=== PATIENT | male | born 1985 | race Two or more races ===

== ENCOUNTER → 2021-12-17 08:57 | Outpatient (BNVA) | payer OTHER, SELFPAY | PROVIDERS: PCP Psychiatry & Neurology Neurology; Visit Provider Psychiatry & Neurology Neurology ==

== ENCOUNTER → 2022-02-18 08:40 | Outpatient (BNVA) | payer OTHER, SELFPAY | PROVIDERS: PCP Internal Medicine; Visit Provider Nurse Practitioner Family | DX: G47.33 Obstructive sleep apnea (adult) (pediatric) (principal); R41.840 Attention and concentration deficit; Z79.899 Other long term (current) drug therapy | CPT/HCPCS: 99212 ==

== ENCOUNTER → 2022-04-17 08:03 | Outpatient (BNVA) | payer OTHER, SELFPAY | PROVIDERS: PCP Internal Medicine; Visit Provider Nurse Practitioner Family | DX: R41.840 Attention and concentration deficit (principal) ==

== ENCOUNTER → 2023-03-10 08:57 | Outpatient (BNVA) | payer OTHER, SELFPAY | PROVIDERS: PCP Internal Medicine; Visit Provider Nurse Practitioner Family | DX: Z13.89 Encounter for screening for other disorder (principal) ==

== ENCOUNTER → 2023-08-21 19:30 | Outpatient (REF) | payer OTHER, SELFPAY | LOC: HO.SL 19:30 | PROVIDERS: Visit Provider Nurse Practitioner Family | DX: G47.19 Other hypersomnia (principal); G47.30 Sleep apnea, unspecified; G47.10 Hypersomnia, unspecified | CPT/HCPCS: 95805; 95810 ==

== ENCOUNTER → 2023-08-21 21:59 | Outpatient (BNV) | payer OTHER, SELFPAY | PROVIDERS: Visit Provider Psychiatry & Neurology Neurology | DX: G47.33 Obstructive sleep apnea (adult) (pediatric) (principal) | CPT/HCPCS: 95810 ==

== ENCOUNTER 2023-08-22 08:36 | Outpatient (REF) | payer OTHER, SELFPAY ==
[2023-08-22 08:48] LABS: Amphetamine Screen Urine Not Detected (Not Detect); Barbiturates, Urine Not Detected (Not Detect); Benzodiazepines Screen Urine Not Detected (Not Detect); Cannabinoid Screen Urine Not Detected (Not Detect); Cocaine Screen Urine Not Detected (Not Detect); Fentanyl, urine Not Detected (Not Detect); Opiate Screen Urine Not Detected (Not Detect); Phencyclidine Screen Urine Not Detected (Not Detect)
== END 2023-08-22 08:37 | disposition home or self-care (01) ==
LOC: HO.LNP 08:36
PROVIDERS: Visit Provider Nurse Practitioner Family
DX: R41.840 Attention and concentration deficit (principal); G47.10 Hypersomnia, unspecified; R41.0 Disorientation, unspecified
CPT/HCPCS: 80307

== ENCOUNTER 2023-09-12 08:55 | Outpatient (AMB) | payer OTHER, SELFPAY ==
--- NOTE | 2023-09-12 08:59 | A.OFFVIS_ITS ---
Intake Vital Signs 09/12/23 09:01 Height 5 ft 7 in Weight 216 lb 6 oz BMI 33.9 BP 112/80 Blood Pressure Location Rt brachial Position Sitting Pulse 93 Pulse Source Pulse Oximeter Pulse Oximetry (%) 98 Oxygen Delivery Method Room Air Intake Visit Reasons: 4m follow up dayan - confirmed Intake Note: F/U sleep study Car Shifter Required: No Allergies No Known Allergies Allergy (Verified 09/12/23 08:59) HPI HPI Comments History of Present Illness Details 38 y/o male patient presents for follow up of DAYAN and hypersomnia. The MSLT result shows pt's sleep latency was 9:18 minutes consistent with hypersomnia. There was no SOREM. He is on modafinil 200 mg qAM. The CPAP compliance and therapy response (08/13/23-09/11/23) reviewed. He is on APAP [id number]. The usage days 90% and the average usage hours 5 hrs and 40 min. The max pressure was 11.3 and the residual AHI was 1.6/hr. He still can fall asleep without modafinil He is a light sleeper, and can wakes up easily during the night. He goes to gym three times a week. Pt recently diagnosed with prediabetes. PFSH Surgical History H/O hernia repair Hx of hand surgery [place] teeth removed Family History Father Diabetes Depression Dementia Mother HTN (hypertension) Acute arthritis Hypoactive thyroid Social History (Updated 09/12/23 @ 09:01 by Lexi Shelton CMA) Alcohol intake: current Alcohol intake frequency: holidays/special occasions only Patient Tobacco Use Status: Never used Tobacco Review of Systems Const All systems reviewed & are unremarkable except as noted in HPI and below ENT Reports Normal hearing present Neuro Reports Normal hearing present Physical Exam Vital Signs: Last Vital Signs Pulse 93 09/12/23 09:01 BP 112/80 09/12/23 09:01 Pulse Ox 98 09/12/23 09:01 Oxygen Delivery Method Room Air 09/12/23 09:01 BMI result Body Mass Index 33.9 Const General: cooperative Orientation/consciousness: patient oriented x3 Neck Neck: Yes full ROM and Yes supple Resp Effort & Inspection: normal respiratory effort and able to speak in complete sentences Neuro General: patient oriented x3 and gait normal Cranial nerves: Yes Bilaterally intact EOM present, Yes Normal facial strength present, Yes Normal hearing present, Yes Ability to bilaterally rotate head present and Yes Ability to bilaterally elevate shoulders present Cognition (Neuro): normal cognition Gait exam (Neuro): Normal gait present Psych Appearance: grossly normal Mental Status: mental status grossly normal Speech and movement: Normal speech and movement present Affect: normal affect Attitude: cooperative Assessment & Plan Assessment & Plan (1) Difficulty concentrating: Code(s): R41.840 - Attention and concentration deficit (2) Excessive daytime sleepiness: Code(s): G47.19 - Other hypersomnia (3) Sleep apnea in adult: Code(s): G47.30 - Sleep apnea, unspecified (4) Hypersomnia, unspecified: Comment: [place] sleepiness scale 17 Code(s): G47.10 - Hypersomnia, unspecified Plan Advised patient to continue to use APAP [id number]. Stressed compliance, and advised patient to clean mask and tubing regularly. Continue to take modafinil 200 qAM. Resent neuropsychology referral to Dr. Daly.? Medications: New magnesium oxide 400 mg PO DAILY 30 tabs 6RF 30 days Coding Level of Care Code Est Pt Level 4 (77734) Diagnoses Difficulty concentrating R41.840 Excessive daytime sleepiness G47.19 Sleep apnea in adult G47.30 Hypersomnia, unspecified G47.10
[2023-09-12 09:01] VITALS: BP 112/80; PULSE 93; O2SAT 98; BMI 33.9
== END 2023-09-12 09:29 | disposition home or self-care (01) ==
PROVIDERS: Visit Provider Nurse Practitioner Family
DX: R41.840 Attention and concentration deficit (principal); G47.19 Other hypersomnia; G47.30 Sleep apnea, unspecified; G47.10 Hypersomnia, unspecified
CPT/HCPCS: 99214

== ENCOUNTER → 2023-09-12 08:55 | Outpatient (BNVA) | payer OTHER, SELFPAY | PROVIDERS: Visit Provider Nurse Practitioner Family ==

== ENCOUNTER 2024-03-23 09:04 | Outpatient (AMB) | payer OTHER, SELFPAY ==
--- NOTE | 2024-03-23 09:03 | A.OFFVIS_ITS ---
Vital Signs 03/23/24 09:04 Height 5 ft 7 in Weight 215 lb BMI 33.7 Pulse 89 Pulse Source Pulse Oximeter Pulse Oximetry (%) 99 Oxygen Delivery Method Room Air Intake Visit Reasons: follow up SARA - Confirmed Intake Note: Patient presents for follow up SARA. patient continue to to have issues with hypersomina Allergies No Known Allergies Allergy (Verified 03/23/24 09:08) HPI Comments Details: 38 y/o male patient presents for follow up of SARA and hypersomnia. The CPAP compliance and therapy response (12/17/23-03/15/24) reviewed. He is on APAP [id number]. The usage days 99% and the average usage hours 6 hrs and 20 min. The max pressure was 11.9 and the residual AHI was 1.8/hr. Pt reports that he still sleepy with modafinil and difficulty concentrating at work. He is on modafinil 200 mg qAM. Referred patient to neuropsychology evaluation but not done yet. He was told that he is in waiting list. He is a light sleeper, and can wakes up easily during the night. He goes to gym two times a week. Pt recently diagnosed with prediabetes, and trying to lose wt. The MSLT result shows pt's sleep latency was 9:18 minutes consistent with hype rsomnia. There was no SOREM. PFSH Surgical History [place] teeth removed Hx of hand surgery H/O hernia repair Family History Father Diabetes Depression Dementia Mother HTN (hypertension) Acute arthritis Hypoactive thyroid Social History Alcohol intake: current Alcohol intake frequency: holidays/special occasions only Patient Tobacco Use Status: Never used Tobacco Review of Systems Const All systems reviewed & are unremarkable except as noted in HPI and below ENT Reports Normal hearing present Neuro Reports Normal hearing present Physical Exam Vital Signs: Last Vital Signs Pulse 89 03/23/24 09:04 Pulse Ox 99 03/23/24 09:04 Oxygen Delivery Method Room Air 03/23/24 09:04 BMI result Body Mass Index 33.7 Const General: cooperative Orientation/consciousness: patient oriented x3 Neck Neck: Yes full ROM and Yes supple Resp Effort & Inspection: normal respiratory effort and able to speak in complete sentences Neuro General: patient oriented x3 and gait normal Cranial nerves: Yes Bilaterally intact EOM present, Yes Normal facial strength present, Yes Normal hearing present, Yes Ability to bilaterally rotate head present and Yes Ability to bilaterally elevate shoulders present Cognition (Neuro): normal cognition Gait exam (Neuro): Normal gait present Psych Appearance: grossly normal Mental Status: mental status grossly normal Speech and movement: Normal speech and movement present Affect: normal affect Attitude: cooperative Assessment & Plan Assessment & Plan (1) Difficulty concentrating: Code(s): R41.840 - Attention and concentration deficit Category: Medical (2) Excessive daytime sleepiness: Code(s): G47.19 - Other hypersomnia Category: Medical (3) Sleep apnea in adult: Code(s): G47.30 - Sleep apnea, unspecified Category: Medical (4) Hypersomnia, unspecified: Comment: [place] sleepiness scale 17 Code(s): G47.10 - Hypersomnia, unspecified Category: Medical Plan Advised patient to continue to use APAP [id number]. Stressed compliance, and advised patient to clean mask and tubing regularly. Continue to take modafinil 200 qAM. Advised patient to try adderall 5 mg 1-2 hr after modafinil. Neuropsychology referral to Dr. Daly.? Medications: New dextroamphetamine-amphetamine 5 mg (Adderall) Partial Fill upon patient request. 5 mg PO DAILY 30 days PRN 30 tabs 0RF hypersomnia Refilled magnesium oxide 400 mg PO DAILY 30 days 30 tabs 6RF
[2024-03-23 09:04] VITALS: PULSE 89; O2SAT 99; BMI 33.7
== END 2024-03-23 09:37 | disposition home or self-care (01) ==
PROVIDERS: PCP Internal Medicine; Visit Provider Nurse Practitioner Family
DX: R41.840 Attention and concentration deficit (principal); G47.19 Other hypersomnia; G47.30 Sleep apnea, unspecified; G47.10 Hypersomnia, unspecified
CPT/HCPCS: 99214

== ENCOUNTER → 2024-03-23 09:05 | Outpatient (BNVA) | payer OTHER, SELFPAY | PROVIDERS: PCP Internal Medicine; Visit Provider Nurse Practitioner Family ==

== ENCOUNTER 2024-09-06 08:56 | Outpatient (AMB) | payer OTHER, SELFPAY ==
--- NOTE | 2024-09-06 08:59 | MHC.OFFVIS ---
Vital Signs 09/06/24 09:09 Height 5 ft 7 in Weight 213 lb BMI 33.4 Intake Visit Reasons: 6 mnts f/u appt Intake Note: Patient presents for 6 months follow up. Allergies No Known Allergies Allergy (Verified 09/06/24 09:09) Medication List - Last Reconciled 09/06/24 by Joy Mendez, GAS ENGINE PERFORMANCE ENGINEER dextroamphetamine-amphetamine 5 mg (Adderall) 5 mg PO DAILY PRN 30 days fluticasone propionate 50 mcg/actuation 1 spray intranasal DAILY PRN levothyroxine 125 mcg PO DAILY loratadine 10 mg PO DAILY PRN magnesium oxide 400 mg PO DAILY 30 days modafinil 200 mg PO QAM 30 days multivitamin (Daily Multi-Vitamin tablet) 1 tab PO DAILY pantoprazole 40 mg PO DAILY HPI Comments Details: 39-yr-old male presents for follow-up visit of sleep apnea and hypersomnia. Pt denies any significant interval medical history changes. Pt continue sto be compliant w/ CPAP, however he continues to have significant daytime sleepiness. He is compliant w/ Modafinil, which helps, but he still has sleepiness and difficulty focusing, staying motivated. Pt reports that he tried adding Adderall 5mg qam at ~8:30am, which helped cognition some, but then he could not fall asleep until midnight. He notes, in the past, he always slept 8 hrs. Now, he falls asleep as soon as he puts his CPAP on. His bedtime varies- between 10-11pm during work days and on the weekend more prone to fall asleep much earlier, even between 7-8pm and taking weekend naps. Then he typically wakes up after 7.5 hrs. His work schedule is 8:30am-5pm. 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 He is finding himself needing to take more notes to remind himself or to sray on task. He has a strong family h/o Alzheimer's, thus his sleep issues worry him.- father had s/s at age 65. His paternal aunts had AD in their 60s-70s, his paternal grandparents had AD s/s in their 70s-80s. Sleep Medicine Services Compliance Report Compliance Payor, 08/07/2024 - 09/05/2024 Usage days 28/30 days (93%) >= 4 hours 22 days (73%) < 4 hours 6 days (20%) Usage hours 163 hours 52 minutes Average usage (total days) 5 hours 28 minutes Average usage (days used) 5 hours 51 minutes Median usage (days used) 6 hours 25 minutes Total used hours (value since last reset - 09/05/2024) 6,896 hours AirSense 10 AutoSet Serial number [id number] Mode AutoSet Min Pressure 6 cmH2O Max Pressure 16 cmH2O EPR Fulltime EPR level 3 Response Standard Therapy Pressure - cmH2O Median: 7.8 95th percentile: 10.1 Maximum: 11.3 Leaks - L/min Median: 6.5 95th percentile: 15.0 Maximum: 27.9 Events per hour AI: 1.1 HI: 0.4 AHI: 1.5 Apnea Index Central: 0.6 Obstructive: 0.4 Unknown: 0.0 RERA Index 0.1 PFSH Surgical History [place] teeth removed Hx of hand surgery H/O hernia repair Family History Father Diabetes Depression Dementia Mother HTN (hypertension) Acute arthritis Hypoactive thyroid Social History Alcohol intake: current Alcohol intake frequency: holidays/special occasions only Patient Tobacco Use Status: Never used Tobacco Physical Exam Vital Signs: BMI result Body Mass Index 33.4 Const General: no acute distress and tired appearing Orientation/consciousness: patient oriented x3 HEENT Other: Mallampati stage Resp Effort & Inspection: normal respiratory effort and able to speak in complete sentences Neuro General: patient oriented x3 Psych Mental Status: mental status grossly normal Speech and movement: Clear speech present Attitude: cooperative Assessment & Plan Assessment & Plan (1) Hypersomnia, unspecified: Comment: MSLT- positive for hypersomnia but no SOREMs Code(s): G47.10 - Hypersomnia, unspecified Category: Medical (2) Sleep apnea in adult: Code(s): G47.30 - Sleep apnea, unspecified Category: Medical Plan For SARA: Continue APAP 6-16 cmH2O nightly > 4 hours, as pt continues to have good clinical effect from use. Clean CPAP machine and supplies routinely. Change CPAP supplies routinely. For hypersomnia in setting of weel controlled SARA: Pt stopped Adderall 5mg qam- as this caused insomnia. Stop Modafinil 200mg qam. Trial Armodafinil 250mg qam- in hopes this is more effective for daytime alertness and cognitive focus. Pt advised to maintain a consistent bedtime routine. May take brief early day scheduled naps. Sleep hygiene education resources shared w/ pt. For family h/o AD: Pt advised to discuss having his father assessed for gentic etiologies of AD. Pt to follow-up in 6 months or sooner prn. Medications: New armodafinil 200 mg PO QAM 30 days 30 tabs 1RF Discontinued dextroamphetamine-amphetamine 5 mg (Adderall) Partial Fill upon patient request. Discontinued Reason: Doctor's Order 5 mg PO DAILY 30 days PRN 30 tabs 0RF hypersomnia modafinil Discontinued Reason: Doctor's Order 200 mg PO QAM 30 days 30 tabs 3RF Coding Level of Care Code Est Pt Level 4 (07571) Diagnoses Hypersomnia, unspecified G47.10 Sleep apnea in adult G47.30
[2024-09-06 09:09] VITALS: BMI 33.4
== END 2024-09-06 10:01 | disposition home or self-care (01) ==
PROVIDERS: PCP Internal Medicine; Visit Provider Nurse Practitioner Family
DX: G47.10 Hypersomnia, unspecified (principal); G47.30 Sleep apnea, unspecified
CPT/HCPCS: 99214

== ENCOUNTER → 2024-09-06 08:56 | Outpatient (BNVA) | payer OTHER, SELFPAY | PROVIDERS: PCP Internal Medicine; Visit Provider Nurse Practitioner Family ==

== ENCOUNTER 2025-03-16 14:56 | Outpatient (AMB) | payer OTHER, SELFPAY ==
--- NOTE | 2025-03-16 14:58 | A.OFFVIS_ITS ---
Vital Signs 03/16/25 14:59 Height 5 ft 7 in Weight 211 lb 4 oz BMI 33.1 BP 124/74 Blood Pressure Location Lt brachial Position Sitting Pulse 90 Pulse Source Pulse Oximeter Pulse Oximetry (%) 99 Oxygen Delivery Method Room Air Intake Visit Reasons: 6mo F/U Intake Note: Patient presents for follow up Sleep. new med trial dextroamphetamine- amphetamine. Patient has questions on medications Allergies No Known Allergies Allergy (Verified 09/06/24 09:09) HPI Comments Details: 39-yr-old male presents for follow-up visit of sleep apnea and Hypersomnia. Pt denies any significant interval medical history changes. He continues to be compliant w/ CPAP, however he continues to have significant excessive daytime sleepiness. He is compliant w/ Armodafinil 200mg PO qAM, which helps, but he still has sleepiness with difficulty focusing and staying on task, he lacks the motivation to take on tasks since he has less energy. Pt reports that he tried adding Adderall 5mg qam at ~8:30am, which helped cognition some, but then he could not fall asleep until midnight, so he stopped taking adderall, Even when he is sleeping his brain is not sleeping. 10-11am then again 3-4pm sleeps power naps 15min. With the 200mg of Armodafinil at night he is having palpitations and feels like he is multitasking. He notes, in the past, he always slept 8 hrs.Now, he falls asleep as soon as he puts his CPAP on. His bedtime varies- between 10-11pm during work days and on the weekend more prone to fall asleep much earlier, even between 7-8pm and taking weekend naps. Then he typically wakes up after 7.5 hrs. His work schedule is 8:30am-5pm. 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 He is finding himself needing to take more notes to remind himself or to stay on task and making executive decisions. He has a strong family h/o Alzheimer's, thus his sleep issues worry him.- father had s/s at age 65. His paternal aunts had AD in their 60s-70s, his paternal grandparents had AD s/s in their 70s-80s. Difficulty with word finding, and planning an event or task is not something he is interested due to lack of sleep, he feels he is delegating more, and does not feel he has more obligations at work or at home, he sees on the avg 5-9 patients. He is able to get supplies on time, washes his mask, changes his filters, and fills the reservoir as needed. PFSH Surgical History [place] teeth removed Hx of hand surgery H/O hernia repair Family History Father Diabetes Depression Dementia Mother HTN (hypertension) Acute arthritis Hypoactive thyroid Social History Alcohol intake: current Alcohol intake frequency: holidays/special occasions only Patient Tobacco Use Status: Never used Tobacco Physical Exam Vital Signs: Last Vital Signs Pulse 90 03/16/25 14:59 BP 124/74 03/16/25 14:59 Pulse Ox 99 03/16/25 14:59 Oxygen Delivery Method Room Air 03/16/25 14:59 BMI result Body Mass Index 33.1 Const General: no acute distress and tired appearing Orientation/consciousness: patient oriented x3 HEENT Other: Mallampati stage Eyes Pupils: Equal, round and reactive pupils present Resp Effort & Inspection: normal respiratory effort and able to speak in complete sentences Neuro General: patient oriented x3 and moves all extremities Cranial nerves: Yes Facial sensation intact/muscles of mastication intact, Yes Equal, round and reactive pupils present, Yes Normal accommodation reflex present, Yes Bilaterally intact EOM present, Yes Nystagmus not present, Yes Normal facial strength present, Yes Midline tongue present, Yes Ability to bilaterally rotate head present and Yes Ability to bilaterally elevate shoulders present Gait exam (Neuro): Normal gait present Motor exam (neuro): 5/5 motor strength present throughout and Normal motor muscle tone present throughout Psych Mental Status: mental status grossly normal Speech and movement: Clear speech present Affect: Blunted affect present Attitude: cooperative Thought process: Normal thought process present Thought content: Normal thought content present Results Reviewed Results Reviewed: SARA Compliance Report 12/06/2024 to 03/15/2025 Total use >4 hours, 81 days total daily use 5 hours 30min Press [id number], Median 7.9cmH20 Leaks Median 7.4cmH20 Assessment & Plan Assessment & Plan (1) Hypersomnia, unspecified: Comment: MSLT- positive for hypersomnia but no SOREMs Code(s): G47.10 - Hypersomnia, unspecified Category: Medical (2) Excessive daytime sleepiness: Code(s): G47.19 - Other hypersomnia Category: Medical (3) Difficulty concentrating: Code(s): R41.840 - Attention and concentration deficit Category: Medical (4) Drowsiness: Code(s): R40.0 - Somnolence Category: Medical (5) Vitamin D deficiency: Code(s): E55.9 - Vitamin D deficiency, unspecified Category: Medical Plan For SARA: Continue APAP 6-16 cmH2O nightly > 4 hours as patient continues to have good clinical outcomes. For hypersomnia in setting of well controlled SARA: Will decrease Armodafinil to 150mg PO qam as this dose may be effective for daytime alertness and cognitive focus. Will discuss and trial him on [place] for SARA and excessive daytime sleepiness at the next visit if he is amenable to this change. Pt advised to maintain a consistent bedtime routine. May take brief early day scheduled naps. Sleep hygiene education resources shared w/ pt. For family h/o AD Pt advised to discuss having his father assessed for genetic etiologies of AD, APO-E4 [place]. APO E4 testing for himself if father is not tested. Pt to follow-up in 6 months or sooner prn, may do a telehealth appointment at 3 months so we can assess for efficacy of dose changes of Armodafinil. Medications: Changed From armodafinil 200 mg PO QAM 30 days 30 tabs 4RF G47.10 - Hypersomnia, unspecified, G47.19 - Other hypersomnia, R40.0 - Somnolence, R41.840 - Attention and concentration deficit To armodafinil 200 mg (1.3333 x 150 mg) PO QAM 40 tabs 4RF 30 days G47.10 - Hypersomnia, unspecified, G47.19 - Other hypersomnia, R40.0 - Somnolence, R41.840 - Attention and concentration deficit Patient Instructions: Sleep Hygiene provided: set a scheduled bedtime and wake time to help regulate the circadian rhythm and balance the release of pituitary hormones. Sleep in a dark room, temperatures below 68 degrees, and no devices n bed. Limit caffeinated products 6 hours prior to bed, and limit fluids 2-4 hours prior to bed. Gentle night yoga, diffusing essential oils, and playing soft music can be relaxing. Changed Armodafinil to 150mg PO qAM. He washes his mask, changes filters and requests supplies as needed. Coding Level of Care Code Est Pt Level 4 (02864) Complex EM visit Add On G2211 Diagnoses Hypersomnia, unspecified G47.10 Excessive daytime sleepiness G47.19 Difficulty concentrating R41.840 Drowsiness R40.0 Vitamin D deficiency E55.9 Time Spent (min) 30
[2025-03-16 14:59] VITALS: BP 124/74; PULSE 90; O2SAT 99; BMI 33.1
--- OUTSIDE RECORDS SUMMARY | 2025-03-16 17:41 | XMS_ITS | Clinical Summary ---
Author Organization [facility] Address [address] [place] [address] Care Team Providers Care Collaborative Physician Name Role Phone Unavailable Primary Care Provider Unavailabl e Source Comments PLEASE NOTE, if this patient is a minor, it may be UNLAWFUL to discuss sensitive information that is contained in these records (such as FAMILY PLANNING, MENTAL HEALTH or SUBSTANCE ABUSE) with the minor patient's parent or other person without the patient's specific authorization.[facility] Immunizations Immunization Administration Dates Next Due Flu, Preservative Free 08/13/2023,10/29/2022,07/2021 Influenza (FLUBLOK),recombinant,injectable,preservati ve Free 08/18/2024 Moderna COVID-19 Vaccine, re d cap blue label, 12+ Primary Series 03/09/2021 PFIZER COVID VACCINE, PURPLE CAP, 12+ 05/16/2022 PPD 04/27/2024,05/26/2023 Pfizer COVID-19 (Comirnaty), Mrna, Lnp-s, Pf, Don-sucrose, 30 Mcg/0.3 Ml, 12yr+ 09/22/2024,11/27/2023 TDAP 02/20/2016 Varicella, Live Vaccine 02/04/2018 Social History Tobacco Use Types Packs/Day Years Used Date Smoking Tobacco: Never Assessed Social Connections Answer Date Recorded Connectedness 0 08/12/2024 Financial Resource Strain Answer Date R ecorded Financial Resource Strain 0 2023 Stress Answer Date Recorded Stress 0 04/27/2024 Physical Activity Answer Date Recorded Physical Activity 0 04/27/2024 Food Insecurity Answer Date Recorded Food 0 08/26/2024 Transportation Needs Answer Date Record ed Transportation 0 04/27/2024 Housing Stability Answer Date Recorded Housing 0 04/27/2024 Safety and Environment Answer Date Dawood rded Safety 0 04/27/2024 Utilities Answer Date Recorded Utilities 0 04/27/2024 Employment Answer Date Recorded Stress 0 08/12/2024 Sex and Gender Information Value Date Recorded Sex Assigned at Male 11/07/2021 6:10 AM PST Legal Sex Male 7:16 AM PDT Gender Identity Male 11/07/2021 6:10 AM PST Sexual Orientation Don't know 11/07/2021 6: 10 AM PST Plan of Treatment Health Maintenance Due Date Last Done Comments Anxiety Screening 1984 Hepatitis C Screening 1984 Tobacco Screening 1984 HIV Screening 1999 Hypertension Screening (#1) 2002 Imm-Hepatitis B (1 of 3 - 19 + 3-dose series) 2003 Alcohol and Drug Screen 12/01/2024 Depression Annual Screen 12/01/2024 Imm-DTaP/Tdap/Td (2 - Td or Tdap) 02/19/2026 016 Diabetes Screening 07/26/2026 07/26/2023, 0 05/05/2023, 05/04/2023, Additional history exists Lipid Screening 05/05/2028 05/05/2023 Imm-Influenza Completed 08/18/2024, 08/01, 10/29/2022, Additional history exists [id number] Completed 09/22/2024, 11/01, 05/16/2022, Additional history exists Insurance [facility] ([facility] Member Subscriber Plan / Payer (Ef fective 2021-Present) Name:Matthew Lepe Relation to Subscriber:Self Name:Matthew Lepe Payer ID:[id number] Type:Indemnity Address: [address] [place] [address]
--- OUTSIDE RECORDS SUMMARY | 2025-03-16 17:41 | XMS_ITS | Clinical Summary ---
Author Organization [address] Building Address [address] [place] [address] Phone Care Team Providers Care Credit Review Officer Name Role Phone Sp Del Rio MD Primary Care Provider [phone] Allergies Active Allergy Reactions Criticality Noted Date Comments House Dust Mite 04/24/2023 Lactose 09/17/2017 Other 04/24/2023 Medications clotrimazole (LOTRIMIN) 1 % cream Apply 1 Application topically 2 (two) times a day. 4 025 Active loratadine (CLARITIN) 10 mg tabletIndicatio ns:Post-nasal drip,Pharyngiti s, unspecified etiology Take 1 tablet (10 mg total) by mouth 1 (one) time each day. 30 tablet 3 5 Active famotidine (Pepcid) 20 mg tabletIndicatio ns:Gastroesopha geal reflux disease without esophagitis Take 1 tablet (20 mg total) by mouth 2 (two) times a day. 60 each 11 5 026 Active ergocalciferol (VITAMIN D-2) 1,250 mcg (50,000 unit) capsule Take 1 capsule (50,000 Units total) by mouth 1 (one) time per week. for 8 doses. - 30 capsule 3 5 Active blood-glucose meter kit Use daily or as directed for monitoring of diabetes. 1 each 5 026 Active armodafiniL (NUVIGIL) 200 mg tablet 5 Active fluticasone propionate (FLONASE) 50 mcg/actuation nasal spray Administer 2 sprays into affected nostril(s). 3 Active semaglutide (OZEMPIC) 0.25 mg or 0.5 mg (2 mg/3 mL) injection pen Inject 0.25 mg under the skin every 7 (seven) days. 2 mL 5 Active levothyroxine (SYNTHROID, LEVOTHROID) 125 mcg tablet Take one tablet by mouth daily except Friday take 2 tablets by mouth 102 tablet 5 Active glucose blood test strip Use daily or as directed for monitoring of diabetes. 100 each 11 5 Active lancets lancets Use daily or as directed for monitoring of diabetes. 100 each 11 5 Active pantoprazole (PROTONIX) 40 mg EC tablet Take 1 tablet (40 mg total) by mouth 1 (one) time each day. 90 tablet 1 5 Active pantoprazole (PROTONIX) 40 mg EC tablet Take 1 Tablet by mouth daily. 90 tablet 4 025 Discontin ued(Reord er) Active Problems Problem Noted Date Diagnosed Date Post-nasal drip 12/20/2024 Pharyngitis 12/20/2024 Vitamin D deficiency 12/20/2024 Diabetes ([facility] V24, [facility] V28) 02/26/2024 Prediabetes 10/18/2022 Allergic rhinitis due to pollen 04/08/2022 Hypersomnia 03/28/2021 Post-void dribbling 03/28/2021 Overview (11/03/2024): S/p UDS, following with Dr Hsieh Obstructive sleep apnea 12/25/2020 Overview (11/03/2024): [facility] Home Sleep Apnea Test: Date 12/13/2020; Wt 211#; BMI 33; RADHA (AHI) 15, AI 2; HI 13; Unclassified apneas 4; Obstructive apneas 2; Central apneas 6; Mixed apneas 0; hypopneas 78; average oxygen saturation 94% (lowest 85% without saturations <88% for 5% or more of study) - Obstructive Sleep Apnea - moderate; mostly hypopneas with central, unclassified and obstructive apneas; without sleep related hypoventilation by 2019 home sleep apnea test. Hypertriglyceridemia 07/24/2017 Lactose intolerance 08/21/2016 GERD (gastroesophageal reflux disease) 5 Overview (11/03/2024): Upper endoscopy 2008 / chronic duodenitis Hypothyroidism 11/16/2015 Encounters Date Type Department Care Team Description 01/07/2025 Telephone Pediatrics - [address] [phone] Sp Del Rio MD prior authorization 01/05/2025 11:00 AM EST Office Visit Spine Supervisor - [address] [phone] Sp Del Rio MD Acquired hypothyroidism (Primary Dx); Gastroesophageal reflux disease without esophagitis; Type 2 diabetes mellitus without complication, without long-term current use of insulin ([facility] V24, [facility] V28); Obstructive sleep apnea; Hypertriglyceridemia; Hypersomnia; Seasonal allergic rhinitis due to pollen 12/21/2024 Telephone Internal Medicine - [address] [phone] Glenys Arrington [place] [facility] ([facility] Please transfer call to ext : [phone] thanks. KLEVER Azam) 12/20/2024 11:55 AM EST Lab Draw Station - [address] Type 2 diabetes mellitus without complication, without long-term current use of insulin ([facility] V24, [facility] V28); Vitamin D deficiency; Encounter for preoperative examination for general surgical procedure; Screening for deficiency anemia 12/20/2024 11:15 AM EST Office Visit Internal Medicine - [address] [phone] Andria Brito NP Post-nasal drip (Primary Dx); Pharyngitis, unspecified etiology; Gastroesophageal reflux disease without esophagitis; Vitamin D deficiency; Type 2 diabetes mellitus without complication, without long-term current use of insulin ([facility] V24, [facility] V28) from Last 3 Months Immunizations Name Administration Dates Next Due Influenza trivalent, 0.5mL, preservative free (Fluarix; FluLaval; Fluzone) ages 6mo and older (Afluria) 3 years and older 11/07/2021,09/14/2018,11/16/2015 Influenza, Unspecified 11/11/2023 PPD Test 02/06/2018,02/04/2018 Tdap Tetanus diptheria acell ular pertussis (Boostrix; Adacel) 7yo and older 02/20/2016 Varicella live (Varivax) 12mo and older 02/05/20 18 Surgical History Surgery Date Site/Laterality Comments OTHER SURGICAL HISTORY 2011 Left PROCEDURE: ---- OTHER ----; COMMENT: remove ganglion cyst HERNIA REPAIR 1985 PROCEDURE: HISTORICAL HERNIA REPAIR/LUCHO CIRCUMCISION, PRIMARY PROCEDURE: HISTORICAL CIRCUMCISION OTHER SURGICAL HISTORY PROCEDURE: HISTORICAL UNSPECIFIED SURGERY; COMMENT: finger surgery UPPER GASTROINTESTINAL ENDOSCOPY 2008 PROCEDURE: UPPER GI ENDOSCOPY/EXAM; COMMENT: chronic duodenitis COLONOSCOPY 09/21/2020 PROCEDURE: HISTORICAL COLONOSCOPY; COMMENT: negative, biopsy pending UPPER GASTROINTESTINAL ENDOSCOPY 09/21/2020 PROCEDURE: UPPER GI ENDOSCOPY/EXAM; COMMENT: negative Medical History Medical History Date Comments Lactose intolerance 08/21/2016 DX:Lactose i ntolerance Hypertriglyceridemia 07/24/2017 DX:Hypertri glyceridemia Prediabetes 10/18/2022 DX:Prediabetes Family History Medical History Relation Name Comments Dementia Father Depression Father Diabetes Father paternal grandf ather Hyperthyroidism Father Diabetes Mother Hyperthyroidism Mother Hyperthyroidism Sister Colon cancer Neg Hx Relation Name Status Comments Father Alive dm, thyroid, Mother Alive dm, thyroid, ht n, hyperlipid Sister Social History Tobacco Use Types Packs/Day Years Used Date Smoking Tobacco: Never Smokeless Tobacco: Never Tobacco Cessation:Counseling Given: Not Answered Alcohol Use Standard Drinks/Week Comments Yes 0 (1 standard drink = 0.6 oz pur e alcohol) Housing Instability Answer Date Recorde d Are you worried that in the next 2 months you may not have stable housing? No 01/04/2025 Food Access & Nutrition Answer Date Rec orded Do you have access to a vari ety of food including fruits and vegetables? Yes 01/04/2025 Access to Healthcare Answer Date Record ed Within the last 3 months, ho w many times did you visit the emergency department for your medical care? 0 01/04/2025 Health Literacy Answer Date Recorded How often do you need to hav e someone help you when you read instructions, pamphlets, or other written material from your doctor or pharmacy? Never 01/04/2025 Caregiver: How often do you need to have someone help you when you read instructions, pamphlets, or other written material from your doctor or pharmacy? Not on file 01/04/2025 Financial Risk Answer Date Recorded How hard is it for you to pa y for the very basics like food, housing, medical care, and air conditioning / heating? Not very hard 01/04/2025 Transportation Answer Date Recorded Has the lack of transportati on kept you from meetings, work, or from getting things needed for daily living? No Has the lack of transportati on kept you from medical appointments or from getting medications? No 01/04/2025 Social Isolation Answer Date Recorded How often do you feel lonely or isolated from th ose around you? Never 01/04/2025 Food Risk Answer Date Recorded Within the past 12 months we worried whether our food would run out before we got money to buy more. Never true 01/04/2025 Within the past 12 months th e food we bought just didn't last and we didn't have money to get more. Never true 01/04/2025 Dependent Care Answer Date Recorded Do you need help finding or paying for care for your loved ones. For example, child care director or elderly care for an older adult? No 01/04/2025 Education Answer Date Recorded Do you think completing more education or training, like finishing a GED, going to college, or learning a trade, would be helpful for you? N/A 01/04/2025 Employment and Income Answer Date Recor ded During the last four weeks, have you been actively looking for work? No 01/04/2025 Living Situation Answer Date Recorded What is your living situation? 0 01/04/2025 Sex and Gender Information Value Date Recorded Sex Assigned at Male 12/04/2024 1:04 PM EST Legal Sex Male 1:35 PM EST Gender Identity Male 12/04/2024 1:04 PM EST Sexual Orientation Straight 12/04/2024 1: 03 PM EST Obstetrics History Last Filed Vital Signs Vital Sign Reading Time Taken Comments Blood Pressure 116/69 01/05/2025 11:07 AM EST Pulse 86 01/05/2025 11:07 AM EST Temperature 36.2 ??C (97.2 ??F) 12/13/2024 1:48 PM ES T Respiratory Rate 18 12/20/2024 11:16 AM EST Oxygen Saturation 98% 12/20/2024 11:16 AM EST Inhaled Oxygen Concentration - - Weight 97.3 kg (214 lb 6.4 oz) 01/05/2025 11:07 AM EST Height 170.2 cm (5' 7 ) 01/05/2025 11:07 AM EST Body Mass Index 33.58 01/05/2025 11:07 AM EST Plan of Treatment Health Maintenance Due Date Last Done Comments Diabetes: Annual Foot Exam 1994 Diabetes: Annual Retina Eye Exam 1994 Hepatitis B Vaccines (1 of 3 - 19+ 3-dose series) 2003 Pneumococcal Vaccine: Pediatrics (0 to 5 Years) and At-Risk Patients (6 to 64 Years) (1 of 2 - PCV) 2003 HIV Screening 11/09/2022 Hepatitis C Screening 11/09/2022 Diabetes: Blood Sugar Control Test (HGBA1C) 05/19/2025 11/18/2024, 01/25/2024 Diabetes: Annual Urine Albumin-Creatinine Ratio (uACR) 11/18/2025 11/18/2024 Diabetes: Annual GFR (Glomerular Filtration Rate) 12/20/2025 12/20/2024, 01/24/2024 Depression Screening 01/04/2026 01/04/2025 Social Influencers of Health Screening 01/04/2026 01/04/2025 DTaP,Tdap,and Td Vaccines (2 - Td or Tdap) 02/19/2026 02/20/2016 Cholesterol Screening (Lipid Panel) 04/21/2026 04/21/2021 Varicella Vaccines Aged Out 02/04/2018 No longer eligible based on patient's age to complete this topic Influenza Vaccine Completed 08/18/2024, , 08/13/2023, Additional history exists COVID-19 Vaccine Completed 09/22/2024, , 05/16/2022, Additional history exists HIB Vaccines Aged Out No longer eligi ble based on patient's age to complete this topic HPV Vaccines Aged Out No longer eligi ble based on patient's age to complete this topic Hepatitis A Vaccines Aged Out No long er eligible based on patient's age to complete this topic IPV Vaccines Aged Out No longer eligi ble based on patient's age to complete this topic MMR Vaccines Aged Out No longer eligi ble based on patient's age to complete this topic Meningococcal ACWY Vaccine Aged Out N o longer eligible based on patient's age to complete this topic Meningococcal B Vaccine Aged Out No l onger eligible based on patient's age to complete this topic RSV Immunization Patients Under 20 months Aged Out No longer eligible based on patient's age to complete this topic Procedures Procedure Name Priority Date/Time Associated Diagnosis Comments CBC WITH AUTO DIFFERENTIAL Routine 12/20/2024 12:03 PM EST Encounter for preoperative examination for general surgical procedure Screening for deficiency anemia CBC AND DIFFERENTIAL Routine 12/20/2024 12:03 PM EST Encounter for preoperative examination for general surgical procedure Screening for deficiency anemia VITAMIN D 25 HYDROXY Routine 12/20/2024 12:03 PM EST Vitamin D deficiency BASIC METABOLIC PANEL Routine 12/20/2024 12:03 PM EST Type 2 diabetes mellitus without complication, without long-term current use of insulin ([facility] V24, [facility] V28) MICROALBUMIN CREATININE URINE RATIO Routine 11/18/2024 11:20 AM EST Diabetes (CMS/HCC V24, CMS/HCC V28) HEMOGLOBIN A1C Routine 11/18/2024 11:07 AM EST Diabetes (CMS/HCC V24, CMS/HCC V28) LIPID PANEL Routine 04/21/2021 from Last 3 Months or Most Recently Relevant to Health Maintenance Results * CBC auto differential (12/20/2024 12:03 PM EST) [facility] WBC 5.9 4.8 - 10.8 K/mcL LAB HEMETOLOGY METHOD 12/20/2024 2:33 PM [facility] RBC 5.10 4.50 - 5.50 M/mcL LAB HEMETOLOGY METHOD 12/20/2024 2:33 PM [facility] Hemoglobin 14.3 13.5 - 17.5 g/dL LAB HEMETOLOGY METHOD 12/20/2024 2:33 PM [facility] Hematocrit 43.1 42.0 - 54.0 % LAB HEMETOLOGY METHOD 12/20/2024 2:33 PM [facility] MCV 85.3 79.0 - 98.0 FL LAB HEMETOLOGY METHOD 12/20/2024 2:33 PM [facility] MCH 28.3 27.0 - 32.0 pcg LAB HEMETOLOGY METHOD 12/20/2024 2:33 PM [facility] MCHC 33.2 32.0 - 37.0 g/dL LAB HEMETOLOGY METHOD 12/20/2024 2:33 PM [facility] RDW 12.5 11.0 - 15.0 % LAB HEMETOLOGY METHOD 12/20/2024 2:33 PM [facility] Platelets 203 130 - 400 K/mcL LAB HEMETOLOGY METHOD 12/20/2024 2:33 PM [facility] MPV 11.0 7.0 - 11.0 FL LAB HEMETOLOGY METHOD 12/20/2024 2:33 PM [facility] NRBC 0.0 <1.0 % LAB HEMETOLOGY METHOD 12/20/2024 2:33 PM [facility] NRBC Absolute 0.00 <0.10 K/mcL LAB HEMETOLOGY METHOD 12/20/2024 2:33 PM [facility] Neutrophils Relative 47.3 % LAB HEMETOLOGY METHOD 12/20/2024 2:33 PM [facility] Lymphocytes Relative 43.4 % LAB HEMETOLOGY METHOD 12/20/2024 2:33 PM [facility] Monocytes Relative 7.9 % LAB HEMETOLOGY METHOD 12/20/2024 2:33 PM [facility] Eosinophils Relative 0.7 % LAB HEMETOLOGY METHOD 12/20/2024 2:33 PM [facility] Basophils Relative 0.5 % LAB HEMETOLOGY METHOD 12/20/2024 2:33 PM [facility] Immature Granulocytes Relative 0.2 % LAB HEMETOLOGY METHOD 12/20/2024 2:33 PM [facility] Neutrophils Absolute 2.80 1.50 - 7.00 K/mcL LAB HEMETOLOGY METHOD 12/20/2024 2:33 PM [facility] Lymphocytes Absolute 2.57 1.00 - 5.00 K/mcL LAB HEMETOLOGY METHOD 12/20/2024 2:33 PM [facility] Monocytes Absolute 0.47 0.20 - 1.00 K/mcL LAB HEMETOLOGY METHOD 12/20/2024 2:33 PM [facility] Eosinophils Absolute 0.04 0.00 - 0.50 K/mcL LAB HEMETOLOGY METHOD 12/20/2024 2:33 PM [facility] Basophils Absolute 0.03 0.00 - 0.20 K/mcL LAB HEMETOLOGY METHOD 12/20/2024 2:33 PM [facility] Immature Granulocytes Absolute 0.01 0.00 - 0.03 K/mcL LAB HEMETOLOGY METHOD 12/20/2024 2:33 PM [facility] Blood Venous blood specimen / Unknown Venipuncture / Unknown 12/20/2024 12:03 PM EST 12/20/2024 12:03 PM EST us Andria Painter [employer] WATCHER LAB BLOOD ORDERABLES Final R esult Performing Organization Address City/[facility]/ZIP Co de Phone Number [facility] [address] [place] [address], [place] [phone] * (ABNORMAL) Vitamin D 25 hydroxy (12/20/2024 12:03 PM EST) Pathologist [facility] Vit D, 25-Hydroxy 24.4(L) 30.0 - 80.0 ng/mL LAB CHEMISTRY METHOD 12/20/2024 6:48 PM [facility] Blood Venous blood specimen / Unknown Venipuncture / Unknown 12/20/2024 12:03 PM EST 12/20/2024 12:03 PM EST us Andria Painter L[employer] W[employer] LAB BLOOD ORDERABLES Final R esult Performing Organization Address City/[facility]/ZIP Co de Phone Number [facility] [address] [place] [address], [place] [phone] * (ABNORMAL) Basic metabolic panel (12/20/2024 12:03 PM EST) [facility] Sodium 138 133 - 145 mmol/L LAB CHEMISTRY METHOD 12/20/2024 6:47 PM [facility] Potassium 4.0 3.5 - 5.5 mmol/L LAB CHEMISTRY METHOD 12/20/2024 6:47 PM [facility] Chloride 104 96 - 110 mmol/L LAB CHEMISTRY METHOD 12/20/2024 6:47 PM [facility] CO2 27 21 - 32 mmol/L LAB CHEMISTRY METHOD 12/20/2024 6:47 PM [facility] Anion Gap 7 3 - 11 LAB CHEMISTRY METHOD 12/20/2024 6:47 PM [facility] Glucose 134(H) 70 - 100 mg/dL LAB CHEMISTRY METHOD 12/20/2024 6:47 PM EST [facility] BUN 10 5 - 25 mg/dL LAB CHEMISTRY METHOD 12/20/2024 6:47 PM EST [facility] Creatinine 1.01 0.70 - 1.30 mg/dL LAB CHEMISTRY METHOD 12/20/2024 6:47 PM [facility] eGFR 96 >=60 mL/min/1. 73m2 LAB CHEMISTRY METHOD 12/20/2024 6:47 PM [facility] Comment:Calculation based on the??Chronic Kidney Disease Epidemiology Collaboration (CKD-EPI) equation refit??without adjustment for race. BUN/Creatinine Ratio 9.9 LAB CHEMISTRY METHOD 12/20/2024 6:47 PM [facility] Calcium 8.4(L) 8.5 - 10.5 mg/dL LAB CHEMISTRY METHOD 12/20/2024 6:47 PM [facility] Blood Venous blood specimen / Unknown Venipuncture / Unknown 12/20/2024 12:03 PM EST 12/20/2024 12:03 PM EST Andria Painter NP LAB BLOOD ORDERABLES Final R esult [facility] [address] [place] [address], * Microalbumin creatinine urine ratio (11/18/2024 11:20 AM EST) Creatinine, Urine 121.0 mg/dL LAB CHEMISTRY METHOD 11/18/2024 3:59 PM [facility] Microalb, Ur 5.8 0.0 - 29.0 mg/L LAB CHEMISTRY METHOD 11/18/2024 3:59 PM [facility] Microalb/Creat Ratio 5 <30 mg/g creat LAB CHEMISTRY METHOD 11/18/2024 3:59 PM [facility] Urine Urine specimen obtained by clean catch procedure / Unknown Non-blood Collection / Unknown 11/18/2024 11:20 AM EST 11/18/2024 11:20 AM EST Tamir CASTAÑEDA LAB URINE ORDERABLES Fi nal Result Performing Organization Address [facility] Co de Phone Number [facility] [address] [place] [address], [place] [phone] * (ABNORMAL) Hemoglobin A1c (11/18/2024 11:07 AM EST) Hemoglobin A1C 6.8(H) <6.5 % LAB CHEMISTRY METHOD 11/18/2024 8:58 PM EST [facility] Mean Bld Glu Estim. 148 mg/dL LAB CHEMISTRY METHOD 11/18/2024 8:58 PM EST [facility] Blood Venous blood specimen / Unknown Venipuncture / Unknown 11/18/2024 11:07 AM EST 11/18/2024 11:11 AM EST Tamir CASTAÑEDA LAB BLOOD ORDERABLES Fi nal Result Performing Organization Address [facility] de Phone Number [facility] [address] [place] [address], [place] [phone] * (ABNORMAL) Lipid panel (04/21/2021) LDL/HDL Ratio 6(A) 0 - 4 Triglycerides 276(A) 0 - 150 mg/dL Cholesterol 202(A) 0 - 200 mg/dL HDL 35(A) >=40 mg/dL LDL Cholesterol 112(A) 0 - 100 mg/dL Blood Venous blood specimen / Unknown Historical Provider LAB BLOOD ORDERABLES Aislinn l Result from Last 3 Months or Most Recently Relevant to Health Maintenance Insurance [facility] Care Teams Credit Review Officer Relationship Specialty Start Date End Date Sp Del Rio MD [address] [place] [id number] PCP - General Internal Medicine 11/18/24
--- OUTSIDE RECORDS SUMMARY | 2025-03-16 17:41 | XMS_ITS | Data Portability ---
Author Organization [facility] Address [address] [place] [address] Care Team Providers Care Cloth Sponger Name Role Phone [facility] Primary Care Provi abdelrahman Assessment No assessment recorded. Plan of Treatment Reminders Order Date Submit Date Provider Last Modified By Organization Details Last Modified Time Details Appointments None recorde d. Lab rapid flu (A+B) 022 11/15/20 [email or web address], [address] [place], [address], 15:11:57 Referral None recorde d. Procedures None recorde d. Surgeries None recorde d. Imaging None recorde d. Medication Orders None recorde d. Patient TargetsNo targets recorded. Patient Instructions Encounter Date Encounter Id Patient Instructions Last Modified By Organization Details Last Modified Time 11/15/2022 [id number] earache: care instructions Not available 11/15/2022 15:11:58 ear infection (otitis media): care instructions Not available 11/15/2022 15:11:57 Reason for Referral None Reported. Results Created Date Observation Date Name Description Value Unit Range Abnormal Flag Note LastModifiedBy Organization Detail LastModifiedTime 11/15/2011/15/2022 rapid flu (A+B) Unknown Analyte Normal = Negati ve Not Available [facility] [address] [place], [address], 11/15/2022 14:46:01 11/15/20 22 11/15/2022 rapid flu (A+B) Unknown Analyte positi ve Not Available [id number] [place], [address], 11/15/2022 14:46:01 11/15/20 22 11/15/2022 rapid flu (A+B) Unknown Analyte Normal = Negati ve Not Available [id number] [place], [address], 11/15/2022 14:46:01 11/15/20 22 11/15/2022 rapid flu (A+B) Unknown Analyte negati ve Not Available [email or web address] [place], [address], 11/15/2022 14:46:01 Result Notes None recorded. Problems Name Problem SNOMED Code Status Onset Date Resolution Date Notes Provider Name and Address Organization Details Recorded Time Hypothyroidism 94915689 Active REBECA MANN RA null, PA - [facility] 14:40:48 Gastroesophage al reflux disease 562252669 Active REBECA MANN RA null, PA - [facility] 2 14:40:57 Hypersomnia with sleep apnea 97545382 Active REBECA MANN RA null, PA - [facility] 14:41:19 Problem Notes None recorded. Procedures Surgical History Date Name Laterality Status Provider Name and Address Organization Details Recorded Time operation on oral cavity completed REBECA GARZA PA - [facility] 11/15/2022 14:42:57 Imaging Results None recorded. Procedure Notes None recorded. Medical Equipment None Reported. Allergies No known drug allergies Medications Name Sig Start Date Stop Date Status Note LastModified by Organization Details LastModified Time levothyroxine active Not Available Not Available Not Available Claritin active Not Available Not Avai lable Not Available modafinil active Not Available Not Letty ilable Not Available pantoprazole active Not Available Not Available Not Available Vitals Date Recorded Body height Body mass index (BMI) Body weight Pain severity - 0-10 verbal numeric rating [Score] - Reported Oxygen saturation Oxygen saturation in Arterial blood by Pulse oximetry Heart rate Respiratory rate Body temperature Systolic blood pressure Diastolic blood pressure Provider Name and Address Organization Details Last Updated DateTime 2 170.18 cm 34.5 kg/m2 98061.3 2 g 3 99 % 99 % 120 /min 19 /min 97 [degF] 115 mm[Hg] 69 mm[Hg] REBECA JOHNATHAN BARRETO PA - [facility] 14:45:25 Social History Question Answer Notes LastModified by Organizat ion Details LastModified Time Tobacco Smoking Status Never Smoker REBECA houser PA - [facility] 11/15/2022 14:42:25 What Is Your Level Of Alcohol Consumption? Occasional Information not available 11/15/2022 Are You Currently Employed? Yes Information not available 11/15/2022 Have You Had Direct Contact, Or Contact During Intimacy, With Monkeypox Rash, Scabs, Or Body Fluids From A Person With Monkeypox? No Information not available 11/15/2022 Do You Use Any Illicit Or Recreational Drugs? No Information not available 11/15/2022 Have You Recently Traveled Abroad? No Information not available 11/15/2022 Do You Or Have You Ever Used Any Other Forms Of Tobacco Or Nicotine? No Information not available 11/15/2022 Sex: Unknown Functional Status None recorded. Mental Status None recorded. Family History Relationship Description Onset Age of this Age Resolved Age Notes LastModified by Organization Details LastModified Time Mother Disorder of thyroid gland Not available 14:41:37 Mother Hypertensive disorder Not available 14:42:05 Father Diabetes mellitus Not available 14:41:53 Medical History No medical history recorded. Past Encounters Encounter ID Performer Location Encounter Start Date Encounter Closed Date Diagnosis/Indication Diagnosis SNOMED-CT Code Diagnosis ICD10 Code Diagnosis Note [id number] [place] [address] 10/11/2020 10:59:01 10/11/2020 14:23:57 [id number] [place] Borjas [place] [id number] [place] [address] 11/15/2022 13:27:34 11/15/2022 15:30:41 Influenza caused by Influenza A virus [id number] J09.X2 Influenza positiveRe commend restPlenty of clear fluidsTyle nol, Motrin prn pain/fever Mucinex prn congestion Humidifier No need for antibiotic may last up to 2 weeksCall or RTC if worsening cough, SOB, high fever, rash, n/v/d and unable to hydrateDis cussed concerning red flags with patient and reasons to follow up in the Emergency Department urgently. Health Concerns Section Related Observation LastModified by Organization Detai ls LastModified Time None Recorded Concern Status LastModified by Organization Details LastModified Time None Recorded Advance Directives Directive None Recorded Payers Encounter Date Sequence Insurance Name Policy Number Policy Doan Covered Member ID Doan Member ID Guarantor Name 10/11/2020 1 [facility] [id number] Matthew Lepe [id number] Matthew Lepe 11/15/2022 1 [facility] [id number] Matthew Lepe [id number] Matthew Lepe Notes Date Note Type Note Provider Name and Address Organization Details Recorded Time 11/15/2022 text/html 37 yo male c/opt has right ear pain x 3 days. pt has nasal congestion, sore throat, body aches x 3 days. Exposed to flu. Request flu test. + subjective fever+ chillsNo difficulty breathing or respiratory distressNo CPNo Abdominal painNo n/v/diarrheaNo myalgiaNo fatigueNo rashNo BAKER/dizzinessNo recent travel Ivan Borjas DO [address] [place], [address], [place] - [facility] 11/15/2022 15:19:35
== END 2025-03-16 15:53 | disposition home or self-care (01) ==
LOC: HO.HSMS 14:57
PROVIDERS: PCP Internal Medicine; Visit Provider Physician Assistant Medical
DX: G47.10 Hypersomnia, unspecified (principal); G47.19 Other hypersomnia; R41.840 Attention and concentration deficit; R40.0 Somnolence; E55.9 Vitamin D deficiency, unspecified
CPT/HCPCS: 99214

== ENCOUNTER → 2025-03-16 14:56 | Outpatient (BNVA) | payer OTHER, SELFPAY | PROVIDERS: PCP Internal Medicine; Visit Provider Physician Assistant Medical ==

== ENCOUNTER 2025-06-13 14:51 | Outpatient (AMB) | payer OTHER, SELFPAY ==
--- NOTE | 2025-06-13 14:55 | MHC.OFFVIS ---
Vital Signs 06/13/25 14:56 Height 5 ft 7 in Weight 205 lb 4 oz BMI 32.1 Pulse 95 Pulse Source Pulse Oximeter Pulse Oximetry (%) 98 Oxygen Delivery Method Room Air Intake Visit Reasons: 3 mo follow up Intake Note: Patient presents follow up SARA medication. Compliance in chart(85/90days, >=4hrs-74%, average usage- 4hrs 48min, Med pressure-7.0, Med leaks- 6.5, AHI-1.3). Accompanied by: Self / Same As Patient Allergies No Known Allergies Allergy (Verified 06/13/25 14:59) HPI Comments Details: 40-yr. old male presents for follow-up visit of sleep apnea and hypersomnia. Pt denies any significant interval medical history changes, he says the dosage of 150mg po is better, however still feels a bit anxious and thinks it may be induced due to the Armodafinil. He still feels overstimulated with Armodafinil 150mg and will cut the pill in 1/2 then cut the 75mg in 1/2 to see if he can titrate his dose to 125mg to better manage symptoms of hypersomnia and anxiety like symptoms of tension. He continues to be compliant with cpap and overall his sleep has improved, he sleeps much better with the use of cpap he can sleep 4-6 hours. He can focus on tasks and complete his tasks but still lacks motivation and has very little energy. He no longer takes naps through the day. He also has mood irritability when he can not sleep for a full 8 hours he finds staying on task more difficult. His memory is stable though he worries since he has a strong f/h of Alzheimer's, thus his sleep issues worry him.- father had s/s at age 65. His paternal aunts had AD in their 60s-70s, his paternal grandparents had AD s/s in their 70s-80s. He has lost 6lbs on Ozempic 0.50mg subcut per week. He is swimming in the pool 1x a week and has a home gym, where he can do resistance exercises. He washes his mask, changes his filters, and fills the reservoir with water as needed. He receives supplies on time, however says his shipments are always missing some items such as filters and or hoses. He would like a sleep dentistry referral for an oral appliance evaluation, he is not sure if he grinds his teeth, denies morning headaches. Labs reviewed on his phone -Vitamin D is low, he takes an otc Vit. D, daily. TSH is normal, B12 is low. A1c has improved. PFSH Surgical History [place] teeth removed Hx of hand surgery H/O hernia repair Family History Father Diabetes Depression Dementia Mother HTN (hypertension) Acute arthritis Hypoactive thyroid Social History Alcohol intake: current Alcohol intake frequency: holidays/special occasions only Patient Tobacco Use Status: Never used Tobacco Physical Exam Vital Signs: Last Vital Signs Pulse 95 06/13/25 14:56 Pulse Ox 98 06/13/25 14:56 Oxygen Delivery Method Room Air 06/13/25 14:56 BMI result Body Mass Index 32.1 Const General: no acute distress and tired appearing Orientation/consciousness: patient oriented x3 HEENT Other: Mallampati stage Resp Effort & Inspection: normal respiratory effort and able to speak in complete sentences Neuro General: patient oriented x3 and moves all extremities Cranial nerves: Yes Facial sensation intact/muscles of mastication intact, Yes Bilaterally intact EOM present, Yes Normal facial strength present, Yes Midline tongue present, Yes Ability to bilaterally rotate head present and Yes Ability to bilaterally elevate shoulders present Gait exam (Neuro): Normal gait present Motor exam (neuro): 5/5 motor strength present throughout and Normal motor muscle tone present throughout Psych Mental Status: mental status grossly normal Speech and movement: Clear speech present Affect: Blunted affect present Attitude: cooperative Thought process: Normal thought process present Thought content: Normal thought content present Results Reviewed Results Reviewed: SARA Compliance Report 03/2025- 05/2025 Total use 85/90 days and 74%, >4 hours 4 hours and 48 min Median press 7.0, leaks are 6.5 and AHI 1.3 Assessment & Plan Assessment & Plan (1) Sleep apnea in adult: Code(s): G47.30 - Sleep apnea, unspecified Category: Medical (2) Hypersomnia, unspecified: Comment: MSLT- positive for hypersomnia but no SOREMs Code(s): G47.10 - Hypersomnia, unspecified Category: Medical (3) Vitamin D deficiency: Code(s): E55.9 - Vitamin D deficiency, unspecified Category: Medical Plan: started vit d otc daily (4) Fatigue: Code(s): R53.83 - Other fatigue Category: Medical Qualifiers: Fatigue type: chronic, unspecified Qualified Code(s): R53.82 - Chronic fatigue, unspecified Plan For SARA: Continue APAP 6-16 cmH2O nightly > 4 hours as patient continues to have good clinical outcomes. For hypersomnia in setting of well controlled SARA: Will decrease Armodafinil from 150 to 125mg PO qam as this dose may be effective for daytime alertness and cognitive focus, he is having s/s of tension and stimulant use, like over-caffeinated and would like to titrate his dose to 125mg po. He is not open to changes of meds at this time. Suggested adding on an anti-depressant and he will think about it. Will discuss and trial him on Sunosi for SARA and excessive daytime sleepiness at the next visit if he is amenable to this change. Pt advised to maintain a consistent bedtime routine. May take brief early day scheduled naps. Sleep hygiene education provided. For family h/o AD- Pt advised to discuss having his father assessed for genetic etiologies of AD, APO-E4 [place]. APO E4 testing for himself if father is not tested. Pt to follow-up in 6 months or sooner prn, may do a telehealth appointment at 3 months so we can assess for efficacy of dose changes of Armodafinil. Orders: Referrals Dentistry Referral G47.30 - Sleep apnea, unspecified Patient Instructions: Sleep Hygiene provided: set a scheduled bedtime and wake time to help regulate the circadian rhythm and balance the release of pituitary hormones. Sleep in a dark room, temperatures below 68 degrees, and no devices n bed. Limit caffeinated products 6 hours prior to bed, and limit fluids 2-4 hours prior to bed. Gentle night yoga, diffusing essential oils, and playing soft music can be relaxing. Sleep dentistry referral. Titrate Armodafinil to 125mg PO daily. Antidepresant? Wellbutrin? SSRI? SNRI? Monitor for excessive daytime sleep. Sunosi an option? for Excessive daytime sleepiness, if he is amenable to changing? Coding Level of Care Code Est Pt Level 4 (70576) Diagnoses Sleep apnea in adult G47.30 Hypersomnia, unspecified G47.10 Vitamin D deficiency E55.9 Chronic fatigue R53.82 Fatigue type: chronic, unspecified Time Spent (min) 20 Comment improving
[2025-06-13 14:56] VITALS: PULSE 95; O2SAT 98; BMI 32.1
--- OUTSIDE RECORDS SUMMARY | 2025-06-13 16:06 | XMS_ITS | Clinical Summary ---
Author Organization [address] [facility] Address [address] [place] [phone] Phone Care Team Providers Care Burner Hand Name Role Phone Sp Del Rio MD Primary Care Provider [phone] Allergies Active Allergy Reactions Criticality Noted Date Comments House Dust Mite 04/24/2023 Lactose 09/17/2017 Other 04/24/2023 Medications famotidine (Pepcid) 20 mg tabletIndicatio ns:Gastroesopha geal reflux disease without esophagitis Take 1 tablet (20 mg total) by mouth 2 (two) times a day. 60 each 11 5 026 Active blood-glucose meter kit Use daily or as directed for monitoring of diabetes. 1 each 5 026 Active armodafiniL (NUVIGIL) 200 mg tablet Take 150 mg by mouth 1 (one) time each day. 5 Active fluticasone propionate (FLONASE) 50 mcg/actuation nasal spray Administer 2 sprays into affected nostril(s). 3 Active glucose blood test strip Use daily or as directed for monitoring of diabetes. 100 each 11 5 Active lancets lancets Use daily or as directed for monitoring of diabetes. 100 each 5 Active levothyroxine (SYNTHROID, LEVOTHROID) 125 mcg tablet Take one tablet by mouth daily except Friday take 2 tablets by mouth 102 tablet 5 Active loratadine (CLARITIN) 10 mg tabletIndicatio ns:Post-nasal drip,Pharyngiti s, unspecified etiology Take 1 tablet (10 mg total) by mouth 1 (one) time each day. 30 tablet 3 5 Active pantoprazole (PROTONIX) 40 mg EC tablet Take 1 tablet (40 mg total) by mouth 1 (one) time each day. 90 tablet 5 Active semaglutide (OZEMPIC) 0.25 mg or 0.5 mg (2 mg/3 mL) injection penIndications: Type 2 diabetes mellitus without complication, without long-term current use of insulin ([facility] V24, [facility] V28) Inject 0.5 mg under the skin every 7 (seven) days. 3 mL 3 5 Active ergocalciferol (VITAMIN D-2) 1,250 mcg (50,000 unit) capsule Take 1 capsule (50,000 Units total) by mouth 1 (one) time per week. for 8 doses. - 30 capsule 3 5 025 Discontinu ed(Discont inued by another clinician) pantoprazole (PROTONIX) 40 mg EC tablet Take 1 tablet (40 mg total) by mouth 1 (one) time each day. 90 tablet 1 5 025 Discontinu ed(Reorder ) olopatadine (PATANOL) 0.1 % ophthalmic solution Administer 1 drop into both eyes 2 (two) times a day if needed for allergies. 5 mL 5 025 Discontinu ed(Discont inued by another clinician) Ozempic 0.25 mg or 0.5 mg (2 mg/3 mL) injection pen INJECT 0.25 UNDER THE SKIN EVERY SEVEN DAYS 3 mL 5 025 Discontinu ed(Reorder ) semaglutide (Ozempic) 0.25 mg or 0.5 mg (2 mg/3 mL) injection pen Inject 0.25 mg under the skin every 7 (seven) days. 3 mL 5 06/27/2 025 Discontinu ed(Dose adjustment ) Active Problems Problem Noted Date Diagnosed Date Post-nasal drip 12/20/2024 Pharyngitis 12/20/2024 Vitamin D deficiency 12/20/2024 Diabetes ([facility] V24, [facility] V28) 02/26/2024 Prediabetes 10/18/2022 Allergic rhinitis due to pollen 04/08/2022 Hypersomnia 03/28/2021 Post-void dribbling 03/28/2021 Overview (11/03/2024): S/p UDS, following with Dr Hsieh Obstructive sleep apnea 12/25/2020 Overview (11/03/2024): [facility] Home Sleep Apnea Test: Date [...] Encounters Date Type Department Care Team Description 05/30/2025 Telephone Internal Medicine - [address] [address] Sp Del Rio MD Prior Auth 05/27/2025 8:30 AM EDT Office Visit Internal Medicine - [address] [place] [address] Sp Del Rio MD Type 2 diabetes mellitus without complication, without long-term current use of insulin ([facility] V24, [facility] V28) (Primary Dx); Acquired hypothyroidism; Gastroesophageal reflux disease without esophagitis; Seasonal allergic rhinitis due to pollen; Hypersomnia; Vitamin D insufficiency from Last 3 Months Immunizations Name Administration [...] Record ed Within the last 3 months, luna culver many times did you visit the emergency [...] your loved ones. For example, child care attendant or elderly care for an older adult? [...] Sign Reading Time Taken Comments Blood Pressure 112/80 05/27/2025 8:33 AM EDT Pulse 91 05/27/2025 8:33 AM EDT Temperature 36.2 C (97.2 F) 12/13/2024 1:48 PM EST Respiratory Rate 18 12/20/2024 11:1 6 AM EST Oxygen Saturation 98% 12/20/2024 11: 16 AM EST Inhaled Oxygen Concentration - - Weight 93.4 kg (205 lb 12.8 oz) 05/27/2025 8:33 AM EDT Height 170.2 cm (5' 7 ) 05/27/2025 8:33 AM EDT Body Mass Index 32.23 05/27/2025 8:33 AM EDT Plan of Treatment Health Maintenance Due Date Last Done Comments Diabetes: Annual Foot Exam 1994 Diabetes: Annual Retina Eye Exam 1994 Hepatitis B Vaccines (1 of 3 - 19+ 3-dose series) 2003 Pneumococcal Vaccine: Pediatrics (0 to 5 Years) and At-Risk Patients (6 to 49 Years) (1 of 2 - PCV) 2003 HIV Screening 11/09/2022 Hepatitis C Screening 11/09/2022 Influenza Vaccine (#1) 2025 , 11/11/2023, 08/13/2023, Additional history exists Diabetes: Annual Urine Albumin-Creatinine Ratio (uACR) 11/18/2025 11/18/2024 Diabetes: Blood Sugar Control Test (HGBA1C) 11/26/2025 05/27/2025, 11/18/2024, 01/25/2024 Depression Screening 01/04/2026 01/04/2025 Social Influencers of Health Screening 01/04/2026 01/04/2025 DTaP,Tdap,and Td Vaccines (2 - Td or Tdap) 02/19/2026 02/20/2016 Cholesterol Screening (Lipid Panel) 04/21/2026 04/21/2021 Diabetes: Annual GFR (Glomerular Filtration Rate) 05/27/2026 05/27/2025, 12/20/2024, 01/24/2024 Varicella Vaccines Aged Out 02/04/2018 No longer eligible based on patient's age to complete this topic COVID-19 Vaccine Completed 09/22/2024, , 05/16/2022, Additional [...] Procedure Name Priority Date/Time Associated Diagnosis Comments HEMOGLOBIN A1C Routine 05/27/2025 8:57 AM EDT Type 2 diabetes mellitus without complication, without long-term current use of insulin ([facility] V24, [facility] V28) THYROID STIMULATING HORMONE WITH REFLEX TO FREE T4 AND FREE T3 Routine 05/27/2025 8:57 AM EDT Acquired hypothyroidism COMPREHENSIVE METABOLIC PANEL Routine 05/27/2025 8:57 AM EDT Type 2 diabetes mellitus without complication, without long-term current use of insulin ([facility] V24, [facility] V28) VITAMIN D 25 HYDROXY Routine 05/27/2025 8:57 AM EDT Vitamin D insufficiency MICROALBUMIN CREATININE URINE RATIO Routine 11/18/2024 11:20 AM EST Diabetes ([facility] V24, [facility] V28) LIPID PANEL Routine 04/21/2021 from Last 3 Months or Most Recently Relevant to Health Maintenance Results * Thyroid stimulating hormone with reflex to free t4 and free t3 (05/27/2025 8:57 AM EDT) TSH 0.95 0.40 - 4.00 mcIU/mL LAB CHEMISTRY METHOD 05/27/2025 4:09 PM EDT [facility] Blood Venous blood specimen / Unknown Venipuncture / Unknown 05/27/2025 8:57 AM EDT 05/27/2025 8:57 AM EDT us Sp Del Rio MD LAB BLOOD ORDERABLES Final Resu lt Performing Organization Address City/[facility]/ZIP Co de Phone Number [facility] [address] [place] [address], [place] [phone] * (ABNORMAL) Vitamin D 25 hydroxy (05/27/2025 8:57 AM EDT) Vit D, 25-Hydroxy 27.2(L) 30.0 - 80.0 ng/mL LAB CHEMISTRY METHOD 05/27/2025 4:09 PM EDT [facility] Blood Venous blood specimen / Unknown Venipuncture / Unknown 05/27/2025 8:57 AM EDT 05/27/2025 8:57 AM EDT us Sp Del Rio MD LAB BLOOD ORDERABLES Final Resu lt Performing Organization Address City/[facility]/ZIP Co de Phone Number [facility] [address] [place] [address], [place] [phone] * Hemoglobin A1c (05/27/2025 8:57 AM EDT) Hemoglobin A1C 5.9 <6.5 % LAB CHEMISTRY METHOD 05/27/2025 10:22 PM EDT [facility] Mean Bld Glu Estim. 123 mg/dL LAB CHEMISTRY METHOD 05/27/2025 10:22 PM EDT [facility] Blood Venous blood specimen / Unknown Venipuncture / Unknown 05/27/2025 8:57 AM EDT 05/27/2025 8:57 AM EDT us Sp Del Rio MD LAB BLOOD ORDERABLES Final Resu lt [facility] [address] [place] [address], * (ABNORMAL) Comprehensive metabolic panel (05/27/2025 8:57 AM EDT) Sodium 139 133 - 145 mmol/L LAB CHEMISTRY METHOD 05/27/2025 3:06 PM [facility] Potassium 4.2 3.5 - 5.5 mmol/L LAB CHEMISTRY METHOD 05/27/2025 3:06 PM [facility] Chloride 108 96 - 110 mmol/L LAB CHEMISTRY METHOD 05/27/2025 3:06 PM [facility] CO2 23 21 - 32 mmol/L LAB CHEMISTRY METHOD 05/27/2025 3:06 PM [facility] Anion Gap 8 3 - 11 LAB CHEMISTRY METHOD 05/27/2025 3:06 PM [facility] Glucose 175(H) 70 - 100 mg/dL LAB CHEMISTRY METHOD 05/27/2025 3:06 PM [facility] BUN 8 5 - 25 mg/dL LAB CHEMISTRY METHOD 05/27/2025 3:06 PM [facility] Creatinine 1.01 0.70 - 1.30 mg/dL LAB CHEMISTRY METHOD 05/27/2025 3:06 PM [facility] eGFR 96 >=60 mL/min/1. 73m2 LAB CHEMISTRY METHOD 05/27/2025 3:06 PM [facility] Comment:Calculation based on the Chronic Kidney Disease Epidemiology Collaboration (CKD-EPI) equation refit without adjustment for race. BUN/Creatinine Ratio 7.9 LAB CHEMISTRY METHOD 05/27/2025 3:06 PM [facility] Calcium 8.6 8.5 - 10.5 mg/dL LAB CHEMISTRY METHOD 05/27/2025 3:06 PM EDT [facility] AST (SGOT) 22 10 - 42 unit/L LAB CHEMISTRY METHOD 05/27/2025 3:06 PM EDT [facility] ALT (SGPT) 44 10 - 60 unit/L LAB CHEMISTRY METHOD 05/27/2025 3:06 PM EDT [facility] Alkaline Phosphatase 65 42 - 121 unit/L LAB CHEMISTRY METHOD 05/27/2025 3:06 PM EDT [facility] Total Protein 7.1 6.0 - 8.0 g/dL LAB CHEMISTRY METHOD 05/27[facility]2025 3:[facility] Albumin 4.0 3.2 - 5.0 g/dL LAB CHEMISTRY METHOD 05/27/2025 3:[facility] PM [facility] Total Bilirubin 0.4 0.0 - 1.4 mg/dL LAB CHEMISTRY METHOD 05/27/2025 3:06 PM EDT [facility] Blood Venous blood specimen / Unknown Venipuncture / Unknown 05/27/2025 8:57 AM EDT 05/27/2025 8:57 AM EDT Sp Del Rio MD LAB BLOOD ORDERABLES Final Resu lt [facility] [address] [place] [address], * Microalbumin creatinine urine ratio (11/18/2024 11:20 AM EST) Creatinine, Urine 121.0 mg/dL LAB CHEMISTRY METHOD 11/18/2024 3:59 PM EST [facility] Microalb, Ur 5.8 0.0 - 29.0 mg/L LAB CHEMISTRY METHOD 11/18/2024 3:59 PM EST [facility] Microalb/Creat Ratio 5 <30 mg/g creat LAB CHEMISTRY METHOD 11/18/2024 3:59 PM EST [facility] Urine Urine specimen obtained by clean catch procedure / Unknown Non-blood Collection / Unknown 11/18/2024 11:20 AM EST 11/18/2024 11:20 AM EST Tamir CASTAÑEDA LAB URINE ORDERABLES Fi nal Result [facility] [address] [place] [address], * (ABNORMAL) Lipid panel (04/21/2021) LDL/HDL Ratio 6(A) 0 - 4 Triglycerides 276(A) 0 - 150 mg/dL Cholesterol 202(A) 0 - 200 mg/dL HDL 35(A) >=40 mg/dL LDL Cholesterol 112(A) 0 - 100 mg/dL Blood Venous blood specimen / Unknown Historical Provider LAB BLOOD ORDERABLES Aislinn l Result from Last 3 Months or Most Recently Relevant to Health Maintenance Insurance [facility] Care Teams Burner Hand Relationship Specialty Start Date End Date Sp Del Rio MD [address] [place] [address] PCP - General Internal Medicine 11/18/24
--- OUTSIDE RECORDS SUMMARY | 2025-06-13 16:06 | XMS_ITS | Data Portability ---
Author Organization [facility] Address [address] [place] [address] Care Team Providers Care Scout Leaser Name Role Phone [facility] Primary Care Provi abdelrahman Assessment No assessment recorded. Plan of Treatment Reminders Order Date Submit Date Provider Last Modified By Organization Details Last Modified Time Details Appointments None recorde d. Lab rapid flu (A+B) 022 11/15/20 [email or web address], [address] [place], [address], 15:11:57 Referral None recorde d. Procedures None recorde d. Surgeries None recorde d. Imaging None recorde d. Medication Orders None recorde d. Patient TargetsNo targets recorded. Patient Instructions Encounter Date Encounter Id Patient Instructions Last Modified By Organization Details Last Modified Time 11/15/2022 [id number] earache: care instructions Not available 11/15/2022 15:11:58 ear infection (otitis media): care instructions Not available 11/15/2022 15:11:57 Reason for Referral None Reported. Results Created Date Observation Date Name Description Value Unit Range Abnormal Flag Note LastModifiedBy Organization Detail LastModifiedTime 11/15/2011/15/2022 rapid flu (A+B) Unknown Analyte Normal = Negati ve Not Available [facility] [address] [place], [address], 11/15/2022 14:46:01 11/15/20 22 11/15/2022 rapid flu (A+B) Unknown Analyte positi ve Not Available [address] [place], [address], 11/15/2022 14:46:01 11/15/20 22 11/15/2022 rapid flu (A+B) Unknown Analyte Normal = Negati ve Not Available [id number] [place], [address], 11/15/2022 14:46:01 11/15/20 22 11/15/2022 rapid flu (A+B) Unknown Analyte negati ve Not Available [address] [place], [address], 11/15/2022 14:46:01 Result Notes None recorded. Problems Name Problem SNOMED Code Status Onset Date Resolution Date Notes Provider Name and Address Organization Details Recorded Time Hypothyroidism 14368669 Active REBECA MANN RA null, [place] - [facility] 2 14:40:48 Gastroesophage al reflux disease 481031075 Active REBECA STEWART-ANISHA RA null, PA - [facility] 2 14:40:57 Hypersomnia with sleep apnea 87265382 Active REBECA STEWART-ANISHA RA null, PA - [facility] 2 14:41:19 Problem Notes None recorded. Procedures Surgical [...] height Body mass index (BMI) Body weight Oxygen saturation Oxygen saturation in Arterial blood by Pulse oximetry Heart rate Respiratory rate Body temperature Systolic And Diastolic Provider Name and Address Organization Details Last Updated DateTime 2 170.18 cm 34.5 kg/m2 20319.3 2 g 99 % 99 % 120 /min 19 /min 97 [degF] 115/69 mm[Hg] REBECA JOHNATHAN BARRETO PA - [facility] 14:45:25 Social History Question Answer Notes LastModified by [employer] Details LastModified Time Tobacco Smoking Status Never Smoker REBECA KAYLA houser PA - [facility] 11/15/2022 14:42:25 Have You Had Direct Contact, Or Contact During Intimacy, With Monkeypox Rash, Scabs, Or Body Fluids From A Person With Monkeypox? No Information not available 11/15/2022 Have You Recently Traveled Abroad? No Information not available 11/15/2022 Sex: Unknown Functional Status Question Answer Note LastModified by [employer] Details LastModified Time Do you use any illicit or recreational drugs? No Information not available 11/15/2022 Do you or have you ever used any other forms of tobacco or nicotine? No Information not available 11/15/2022 What is your level of alcohol consumption? Occasional Information not available 11/15/2022 Are you currently employed? Yes Information not available 11/15/2022 Mental Status None recorded. Family History Relationship [...] SNOMED-CT Code Diagnosis ICD10 Code Diagnosis Note [id number] [facility] [address] 10/11/2020 10:59:01 10/11/2020 14:23:57 [id number] [place] Borjas [place] [address] [facility] [place] [address] 11/15/2022 13:27:34 11/15/2022 15:30:41 Influenza caused by Influenza A virus [id number] J09.X2 Influenza positiveRe commend restPlenty of clear [...] Recorded Advance Directives Directive None Recorded Payers Insurance Date Sequence Insurance Name Policy Number Policy Doan Covered Member ID Doan Member ID Guarantor Name 11/15/[address] [place] [address] [id number] [facility] [id number] [facility] Notes Date Note Type Note Provider Name [...] Borjas DO [address] [place], [address], [place] - [facility] 11/15/2022 15:19:35
--- OUTSIDE RECORDS SUMMARY | 2025-06-13 16:06 | XMS_ITS | Clinical Summary ---
Author Organization [facility] Address [address] [place] [address] Care Team Providers Care Gun Numberer Name Role Phone Unavailable Primary Care Provider [...] 30 Mcg/0.3 Ml, 12yr+ 09/22/2024,11/27/2023 TDAP 02/20/2016 Varicella (Varivax), Live Vaccine 02/04/2018 Social History Tobacco Use [...] Drug Screen 12/01/2024 Depression Annual Screen 12/01/2024 Imm-Influenza (#1) 2025 08/18/2024, 0 08/13/2023, 10/29/2022, Additional history exists Imm-DTaP/Tdap/Td (2 - Td or Tdap) 02/19/2026 016 Diabetes Screening 07/26/2026 07/26/2023, 0 05/05/2023, 05/04/2023, Additional history exists Lipid Screening 05/05/2028 05/05/2023 [id number] Completed 09/22/2024, 11/01, 05/16/2022, Additional history exists Insurance [employer] ([employer] Member Subscriber Plan / Payer (Ef fective 2021-Present) Name:Matthew Lepe Relation to Subscriber:Self Name:Matthew Lepe Payer ID:[id number] Type:Indemnity Address: [address] [place] [address]
== END 2025-06-13 15:32 | disposition home or self-care (01) ==
PROVIDERS: PCP Internal Medicine; Visit Provider Physician Assistant Medical
DX: G47.30 Sleep apnea, unspecified (principal); G47.10 Hypersomnia, unspecified; E55.9 Vitamin D deficiency, unspecified; R53.82 Chronic fatigue, unspecified
CPT/HCPCS: 99214